=== PATIENT | female | born 1980 | race Two or more races ===

== ENCOUNTER → 2018-10-05 | Outpatient (CLI) | payer OTHER | END | disposition home or self-care (01) | LOC: LAB 13:42 | DX: Z00.00 Encounter for general adult medical examination without abnormal findings (principal); Z11.59 Encounter for screening for other viral diseases | CPT/HCPCS: 36415; 82951; 83036; 84439; 84443; 86850; 86900; 86901 ==

== ENCOUNTER → 2019-02-01 | Outpatient (CLI) | payer OTHER | END | disposition home or self-care (01) | LOC: LAB 11:18 | DX: Z00.00 Encounter for general adult medical examination without abnormal findings (principal) | CPT/HCPCS: 36415; 82951; 83036 ==

== ENCOUNTER → 2019-03-08 | Outpatient (CLI) | payer OTHER | END | disposition home or self-care (01) | LOC: LAB 09:36 | DX: Z00.00 Encounter for general adult medical examination without abnormal findings (principal) | CPT/HCPCS: 36415; 82951; 83036 ==

== ENCOUNTER → 2019-11-10 | Outpatient (CLI) | payer MEDICAID | END | disposition home or self-care (01) | LOC: LAB 10:07 | DX: E03.9 Hypothyroidism, unspecified (principal); Z13.1 Encounter for screening for diabetes mellitus | CPT/HCPCS: 36415; 82951; 83036; 84439; 84443 ==

== ENCOUNTER 2021-05-22 20:23 | Observation (INO) | payer OTHER, MEDICAID ==
[~2021-05-22] VITALS: Ht 165.1 cm; Wt 126.1 kg
[2021-05-22] MEDS ORDERED: PREN-96 PO (21:39)
== END 2021-05-22 22:05 | disposition home or self-care (01) ==
LOC: LDRP 20:23
PROVIDERS: ADMIT Obstetrics & Gynecology; ATTEND Obstetrics & Gynecology
DX: O36.8120 Decreased fetal movements, second trimester, not applicable or unspecified (principal); Z3A.24 24 weeks gestation of pregnancy
CPT/HCPCS: 59025; 76805; 81002; 94760; G0378